=== PATIENT | male | born 1980 | race African-American/Black ===

== ENCOUNTER 2016-12-13 14:05 | Emergency (ER) | payer SELFPAY ==
[~2016-12-13] VITALS: Ht 175.3 cm; Wt 106.5 kg
[~2016-12-13 14:05] MED LIST: HYDR50TA94 PO; PRED20 PO; RANI300T PO; Z.0.NO CURRENT MEDS
[2016-12-13 14:06] VITALS: BP 133/78; PULSE 80; RESP 17; TEMP 98.3; O2SAT 98
--- NOTE | 2016-12-13 14:30 | PD ---
HPI . left thumb laceration Chief Complaint: Injury Time Seen by Provider: 14:30 Travel History International Travel<30 days: No Contact w/Intl Traveler<30days: No Traveled to known affect area: No History of Present Illness HPI 36-year-old male with no significant past medical history here with complaints of left thumb laceration. Patient was cutting some cooked chicken breast when he accidentally sliced through the distal tip of his left thumb. He is here for repair. He does report pain at the left distal thumb. He also has some pain at the metacarpal phalangeal joint of the thumb. He is right handed dominant. He does not recall the last date of his tetanus. [facility] Social History Alcohol Use: No Tobacco Use: Yes (1 PPD) Substance Use: No Allergies-Medications (Allergen,Severity, Reaction): Coded Allergies: No Known Allergies (Verified , 12/13/16) Reported Meds & Prescriptions Reported Meds & Active Scripts Active No Active Prescriptions or Reported Medications Review of Systems General / Constitutional: No: Fever Eyes: No: Visual changes HENT: No: Headaches Cardiovascular: No: Chest Pain or Discomfort Respiratory: No: Shortness of Breath Gastrointestinal: No: Abdominal Pain Genitourinary: No: Dysuria Musculoskeletal: No: Pain Skin: Positive Other (left thumb laceration ), No Rash Neurologic: No: Weakness Psychiatric: No: Depression Endocrine: No: Polydipsia Hematologic/Lymphatic: No: Easy Bruising Physical Exam Narrative GENERAL: AAO x 3, no acute distress, Well-nourished, well-developed patient. SKIN: Warm and dry. No visible rashes or bruising. Left thumb distal tip with a 1.4 cm laceration extended from the mid nailbed all the way around to the volar surface. no bone or vessel seen. No nerve seen. Extends in fat pad. HEAD: Normocephalic and atraumatic. EYES: No scleral icterus. No injection or drainage. ENT: No nasal drainage noted. Airway patent. NECK: Supple, trachea midline. No JVD. CARDIOVASCULAR: Regular rate and rhythm without murmurs, gallops, or rubs. RESPIRATORY: Breath sounds equal bilaterally. No accessory muscle use. No rhonchi or rales. GASTROINTESTINAL: Visual inspection is normal EXTREMITIES: No cyanosis or edema. Left thumb laceration. All digits of the bilateral hands move normally. Sensation is intact. BACK: Nontender without obvious deformity. No CVA tenderness. PSYCH: AAO x 3, normal affect. Data Data Last Documented VS Vital Signs Date Time Temp Pulse Resp B/P Pulse Ox O2 Delivery O2 Flow Rate FiO2 12/13/16 14:06 98.3 80 17 133/78 98 Orders Tetanus/Diphtheria Tox Adult (Tetanus/Di (12/13/16 14:45) Lidocaine 1% Inj (50 Ml) (Xylocaine 1% I (12/13/16 14:45) Finger ([id number]) (12/13/16 14:34) MDM Medical Decision Making Medical Screen Exam Complete: Yes Emergency Medical Condition: Yes Medical Record Reviewed: Yes Differential Diagnosis left thumb laceration, abrasion, less likely amputation, less likely fracture Narrative Course 36-year-old male with no significant past medical history here with complaints of left thumb laceration. Patient was cutting some cooked chicken breast when he accidentally sliced through the distal tip of his left thumb. He is here for repair. He does report pain at the left distal thumb. He also has some pain at the metacarpal phalangeal joint of the thumb. He is right handed dominant. He does not recall the last date of his tetanus. Patient seen and examined. He does have a laceration to the left distal thumb that needs repair. Patient gave verbal consent to repair. X-ray ordered to look for any signs of fractures. X-ray negative. Laceration was repaired with 6 total simple interrupted sutures. 3 in the nailbed were chromic gut and 3 along the thumb were Ethilon. Tetanus was administered without incident. Clean sterile dressing was applied. Splint was given for protection. Advised to keep area safe from injury. Tramadol for pain. Wound care discussed. Advised to return in 5-7 days for repair. Patient verbalized understanding of instructions, questions were answered, and thanked me for their care. I advised them if their condition worsens, please return to the nearest emergency room for further care. Procedures Procedure Narrative LACERATION LOCATION: Left distal thumb LENGTH: 1.4 cm NUMBER OF STITCHES/CUAUHTEMOC: 6 total ( 3 chromic gut/3 ethilon) REPAIR: The area of the laceration was prepped with Betadine and sterilely draped. The laceration was infiltrated with 1% lidocaine digital block. The wound was copiously irrigated and explored without evidence of foreign body, tendon injury or neurovascular injury. The wound was closed using chromic gut and Ethilon. This was a single layer repair. A sterile dressing was applied. The patient was advised to keep the dressing clean and dry. Patient tolerated the procedure well. Diagnosis Primary Impression: Laceration of left thumb Qualified Code: S61.012A - Laceration of left thumb, initial encounter Patient Instructions: Acute Wound Care (ED), Finger Laceration (ED), General Instructions Additional Instructions: Keep area clean and dry. Use gauze as we discussed and change 1-2 times a day. Watch for signs of infection: fever, redness, swelling, warmth, pus or drainage , red streaks around the cut, and increased pain from the area. If any of these signs of infection develop, please come to the emergency department immediately. If you received a tetanus shot, you may experience tenderness at the injection site. This is normal. Return to the emergency department in 5-7 days to have the sutures removed (3) Scripts Tramadol 50 Mg Tab50 Mg PO Q8H PRN (PAIN) #8 TAB Ref 0 Prov:Tommy Beauchamp MD 12/13/16 Disposition: 01 DISCHARGE HOME Condition: Stable Melody Rosario Dec 13, 2016 14:30 Condition: Stable Melody Rosario Dec 13, 2016 14:30
[2016-12-13] MEDS ORDERED: LIDOCAINE HCL 1% 50 ML VIAL INFIL ONE (14:45)
[2016-12-13] MEDS ORDERED: TETANUS/DIPHTHERIA TOXOID ADULT 0.5 ML VIAL IM ONE (14:45)
--- NOTE | 2016-12-13 15:10 | RADRPT ---
EXAM DATE/TIME: 12/13/2016 15:05 [facility] COMPARISON: No previous studies available for comparison. INDICATIONS : Pain from laceration with knife while cooking. MEDICAL HISTORY : None. SURGICAL HISTORY : None. ENCOUNTER: Initial ACUITY: 1 day PAIN SCORE: 8/10 LOCATION: Left first digit. FINDINGS: No definite fractures, or dislocations are identified. No definite lytic or sclerotic lesion is seen . Soft tissue swelling is identified with slight soft tissue laceration of the first distal phalanx. There is no evidence for a radiopaque foreign body for technique. CONCLUSION: Soft tissue swelling/laceration and no definite fracture for technique. Jeny Blandon MD on December 13, 2016 at 15:07 Board Certified Radiologist. This report was verified electronically.
[2016-12-13] MEDS ORDERED: TRAM50TA PO (15:47)
== END 2016-12-13 15:57 | disposition home or self-care (01) ==
LOC: NEPK 14:05
DX: S61.012A Laceration without foreign body of left thumb without damage to nail, initial encounter (principal); W26.0XXA Contact with knife, initial encounter; Y93.G1 Activity, food preparation and clean up; Z23 Encounter for immunization
CPT/HCPCS: 12001; 73140; 90471; 90714

== ENCOUNTER 2017-06-22 22:12 | Emergency (ER) | payer SELFPAY ==
[~2017-06-22] VITALS: Ht 175.3 cm; Wt 98.0 kg
[~2017-06-22 22:12] MED LIST changes: -HYDR50TA94 PO; -PRED20 PO; -RANI300T PO; +TRAM50TA PO; -Z.0.NO CURRENT MEDS
[2017-06-22 22:17] VITALS: BP 152/99; PULSE 104; RESP 18; TEMP 98.1; O2SAT 98
[2017-06-22] MEDS ORDERED: SODIUM CHLOR 0.9% 1000 ML INJ 1,000 ML IV SCH (22:44)
[2017-06-22] MEDS ORDERED: ONDANSETRON HCL 4 MG/2 ML VIAL IVP ONE (22:45)
[2017-06-22] MEDS ORDERED: LIDOCAINE VISCOUS 2% SOLN 15 ML UDC PO ONE (22:45)
[2017-06-22] MEDS ORDERED: SODIUM CHLORIDE 0.9% FLUSH 10 ML FLUSH IV FLUSH PRN (22:45)
[2017-06-22] MEDS ORDERED: ALUMINUM/MAGNESIUM/SIMETH 30 ML CUP PO ONE (22:45)
[2017-06-22] MEDS ORDERED: MORPHINE SULFATE 4 MG/ML INJ IV PUSH ONE (22:45)
--- NOTE | 2017-06-22 22:46 | PD ---
HPI Chief Complaint: Flank/Kidney Pain Time Seen by Provider: 22:39 Travel History International Travel<30 days: No Contact w/Intl Traveler<30days: No Traveled to known affect area: No History of Present Illness HPI 37-year-old male with reported history of kidney stones here for evaluation of bilateral flank pain. The patient reports that the pain has been going on for last 2 days, described as cramping, radiates to his bilateral upper and lower abdomen, intermittently worse at times. No modifying factors. Pain is associated with nausea and vomiting. He has also noted hematuria. PFSH Past Medical History Diabetes: No Patient Takes Glucophage: No Diminished Hearing: No Kidney Stones: Yes Immunizations Current: Yes Tetanus Vaccination: < 5 Years Influenza Vaccination: Yes Past Surgical History Other Surgery: Yes (KIDNEY STONES) Social History Alcohol Use: Yes (OCCASIONAL) Tobacco Use: Yes Substance Use: No Allergies-Medications (Allergen,Severity, Reaction): Coded Allergies: No Known Allergies (Verified Adverse Reaction, Unknown, 06/22/17) Reported Meds & Prescriptions Reported Meds & Active Scripts Active No Active Prescriptions or Reported Medications Review of Systems Except as stated in HPI: all other systems reviewed are Neg Physical Exam Narrative GENERAL: Well-developed, well-nourished, retching into an emesis bag. SKIN: Focused skin assessment warm/dry. No rash. HEAD: Atraumatic. Normocephalic. EYES: Pupils equal and round. No scleral icterus. No injection or drainage. ENT: Mucous membranes pink and moist. NECK: Trachea midline. No JVD. CARDIOVASCULAR: Regular rate and rhythm. No murmur appreciated. RESPIRATORY: No accessory muscle use. Clear to auscultation. Breath sounds equal bilaterally. GASTROINTESTINAL: Abdomen soft, non-tender, nondistended. MUSCULOSKELETAL: No obvious deformities. No clubbing. No cyanosis. No edema. Moderate bilateral CVA tenderness. NEUROLOGICAL: Awake and alert. No obvious cranial nerve deficits. Motor grossly within normal limits. Normal speech. PSYCHIATRIC: Appropriate mood and affect; insight and judgment normal. Data Data Last Documented VS Vital Signs Date Time Temp Pulse Resp B/P (MAP) Pulse Ox O2 Delivery O2 Flow Rate FiO2 06/22/17 22:56 98.4 90 12 135/84 (101) 98 Orders Orders Complete Blood Count With Diff (06/22/17 22:44) Comprehensive Metabolic Panel (06/22/17 22:44) Lipase (06/22/17 22:44) Prothrombin Time / Inr (Pt) (06/22/17 22:44) Act Partial Throm Time (Ptt) (06/22/17 22:44) Urinalysis - C+S If Indicated (06/22/17 22:44) Ct Abd/Pel W/O Iv Contrast (06/22/17 22:44) Iv Access Insert/Monitor (06/22/17 22:44) Ecg Monitoring (06/22/17:44) Oximetry (06/22/17:44) Morphine Inj (Morphine Inj) (06/22/17 22:45) Ondansetron Inj (Zofran Inj) (06/22/17 22:45) Sodium Chlor 0.9% 1000 Ml Inj (Ns 1000 M (06/22/17 22:44) Sodium Chloride 0.9% Flush (Ns Flush) (06/22/17 22:45) Al-Mag Hy-Si 40-40-4 Mg/Ml Liq (Mag-Al P (06/22/17 22:45) Lidocaine 2% Viscous (Xylocaine 2% Visco (06/22/17 22:45) Sodium Chlor 0.9% 1000 Ml Inj (Ns 1000 M (06/23/17 00:15) Creatine Kinase (Cpk) (06/23/17 00:18) CKMB (06/22/17 23:15) CKMB% (06/22/17 23:15) Basic Metabolic Panel (Bmp) (06/23/17 01:02) Complete Blood Count With Diff (06/23/17 01:02) Sodium Chloride 0.9% Flush (Ns Flush) (06/23/17 01:15) Creatine Kinase (Cpk) (06/23/17 01:02) Drug Screen, Random Urine (06/23/17 01:02) CKMB (06/23/17 01:30) CKMB% (06/23/17 01:30) Potassium Chloride (Kcl) (06/23/17 09:00) Labs Laboratory Tests Test 06/22/17 23:05 06/22/17 23:15 06/23/17 01:30 Urine Color DARK-YELLOW Urine Turbidity HAZY Urine pH 6.0 Urine Specific [place] 1.033 Urine Protein 300 mg/dL Urine Glucose (UA) NEG mg/dL Urine Ketones TRACE mg/dL Urine Occult Blood SMALL Urine Nitrite NEG Urine Bilirubin NEG Urine Urobilinogen 4.0 MG/DL Urine Leukocyte Esterase NEG Urine RBC 8 /hpf Urine WBC 4 /hpf Urine Squamous Epithelial Cells <1 /hpf Urine Bacteria RARE /hpf Urine Hyaline Casts 110 /lpf Urine Mucus MOD /lpf Microscopic Urinalysis Comment CULT NOT INDICATED Urine Opiates Screen NEG Urine Barbiturates Screen NEG Urine Amphetamines Screen NEG Urine Benzodiazepines Screen NEG Urine Cocaine Screen NEG Urine Cannabinoids Screen NEG White Blood Count 10.6 TH/MM3 9.0 TH/MM3 Red Blood Count 6.33 MIL/MM3 5.43 MIL/MM3 Hemoglobin 19.4 GM/DL 16.6 GM/DL Hematocrit 54.9 % 47.2 % Mean Corpuscular Volume 86.7 FL 86.9 FL Mean Corpuscular Hemoglobin 30.7 PG 30.5 PG Mean Corpuscular Hemoglobin Concent 35.4 % 35.1 % Red Cell Distribution Width 14.3 % 14.4 % Platelet Count 220 TH/MM3 202 TH/MM3 Mean Platelet Volume 8.2 FL 8.0 FL Neutrophils (%) (Auto) 72.0 % 66.5 % Lymphocytes (%) (Auto) 17.9 % 22.0 % Monocytes (%) (Auto) 9.1 % 10.5 % Eosinophils (%) (Auto) 0.1 % 0.1 % Basophils (%) (Auto) 0.9 % 0.9 % Neutrophils # (Auto) 7.7 TH/MM3 6.0 TH/MM3 Lymphocytes # (Auto) 1.9 TH/MM3 2.0 TH/MM3 Monocytes # (Auto) 1.0 TH/MM3 0.9 TH/MM3 Eosinophils # (Auto) 0.0 TH/MM3 0.0 TH/MM3 Basophils # (Auto) 0.1 TH/MM3 0.1 TH/MM3 CBC Comment DIFF FINAL DIFF FINAL Differential Comment Prothrombin Time 11.2 SEC Prothromb Time International Ratio 1.0 RATIO Activated Partial Thromboplast Time 28.3 SEC Blood Urea Nitrogen 26 MG/DL 22 MG/DL Creatinine 1.60 MG/DL 1.20 MG/DL Random Glucose 112 MG/DL 88 MG/DL Total Protein 10.4 GM/DL Albumin 4.6 GM/DL Calcium Level 9.9 MG/DL 8.6 MG/DL Alkaline Phosphatase 168 U/L Aspartate Amino Transf (AST/SGOT) 46 U/L Alanine Aminotransferase (ALT/SGPT) 48 U/L Total Bilirubin 1.1 MG/DL Sodium Level 131 MEQ/L 134 MEQ/L Potassium Level 3.2 MEQ/L 3.1 MEQ/L Chloride Level 91 MEQ/L 96 MEQ/L Carbon Dioxide Level 27.5 MEQ/L 28.4 MEQ/L Anion Gap 13 MEQ/L 10 MEQ/L Estimat Glomerular Filtration Rate 59 ML/MIN 82 ML/MIN Total Creatine Kinase 1072 U/L 846 U/L Creatine Kinase MB 5.0 NG/ML Creatine Kinase MB % 0.5 % Lipase 73 U/L MDM Medical Decision Making Medical Screen Exam Complete: Yes Emergency Medical Condition: Yes Differential Diagnosis Nephrolithiasis, ureterolithiasis, UTI, pyelonephritis, gastritis, peptic ulcer disease, hepatobiliary disease Narrative Course Initial vital signs show heart rate 104, blood pressure 152/99, pulse ox 98% on room air, oral temp of 98.1F. Repeat vital signs show heart rate 90, blood pressure 135/84, pulse ox 98% on room air, oral temp of 98.4F. CBC: WBC 10.6, hemoglobin 19.4, hematocrit 54.9, platelets 220. CMP shows sodium 131, potassium 3.2, chloride 91, V1 26, creatinine 1.6, GFR 59 which is slightly worse than labs that we have on file from 7 years ago. Total CK is 1072. UA shows hazy/dark yellow urine, 3 and a protein, trace ketones, small occult blood, 4 urobilinogen, 8 rbc's, rare bacteria, moderate mucus, not suggestive of UTI. CT abdomen pelvis: No evidence of acute abdominal or pelvic process. No masses are identified. No renal stones are identified. Patient was given pain medication, and on reassessment he is feeling improved. He was made aware of all findings and denies illicit drug use. Patient was given 2 L normal saline IV. His labs will be repeated. If there is an improvement in his hemoconcentration, creatinine, and total CK, he will be discharged home. With further workup as an outpatient. My PA Taj Ward will follow-up with these results and formulate a disposition. Diagnosis Primary Impression: Flank pain Additional Impressions: Dehydration Hypokalemia Scripts No Active Prescriptions or Reported Meds Daniel Ribera MD Jun 22, 2017 22:46
[2017-06-22 22:56] VITALS: BP 135/84; PULSE 90; RESP 12; TEMP 98.4; O2SAT 98
--- NOTE | 2017-06-22 23:25 | RADRPT ---
EXAM DATE/TIME: 06/22/2017 23:04 [facility] COMPARISON: No previous studies available for comparison. INDICATIONS : Bilateral flank pain. ORAL CONTRAST: No oral contrast ingested. RADIATION DOSE: 13.08 CTDIvol (mGy) MEDICAL HISTORY : Renal calculi. SURGICAL HISTORY : Surgery for renal calculi removal. ENCOUNTER: Initial ACUITY: 1 day PAIN SCALE: 6/10 LOCATION: Bilateral flank TECHNIQUE: Volumetric scanning of the abdomen and pelvis was performed. Using automated exposure control and ad justment of the mA and/or kV according to patient size, radiation dose was kept as low as reasonably achievable to obtain optimal diagnostic quality images. DICOM format image data is available electro nically for review and comparison. FINDINGS: Examination of the lung bases demonstrates no abnormality. No pleural fluid is identified. No pulmona ry nodules are present. The liver and spleen are normal in size and no focal defects are identified. There is facet arthritis atThe adrenal glands are unremarkable. The kidneys are normal bilaterally wi thout evidence of mass or hydronephrosis. Examination of the pelvis demonstrates no evidence of free fluid or pelvic mass. No abnormally enlarg ed inguinal or retroperitoneal lymph nodes are present. The bladder is unremarkable. There is diverti culosis without evidence of diverticulitis. CONCLUSION: 1. No evidence of acute abdominal or pelvic process. No masses are identified. No renal stones are id entified. Gideon Arauz MD on June 22, 2017 at 23:20 Board Certified Radiologist. This report was verified electronically.
[2017-06-22 23:43] LABS: AUTOMATED NEUTROPHIL # 7.7 TH/MM3 (1.8-7.7); BASOPHIL # 0.1 TH/MM3 (0-0.2); BASOPHIL % 0.9 % (0.0-2.0); EOSINOPHIL % 0.1 % (0.0-4.0); HEMATOCRIT 54.9 % (39.0-51.0); HEMO FLAGS DIFF FINAL; LYMPH % 17.9 % (9.0-44.0); LYMPHOCYTE # 1.9 TH/MM3 (1.0-4.8); MEAN CELL VOLUME 86.7 FL (80.0-100.0); MEAN CORPUSCULAR HEMOGLOBIN 30.7 PG (27.0-34.0); MEAN CORPUSCULAR HGB CONC 35.4 % (32.0-36.0); MONO % 9.1 % (0.0-8.0); PLATELET COUNT 220 TH/MM3 (150-450); RED BLOOD COUNT 6.33 MIL/MM3 (4.50-5.90); RED CELL DISTRIBUTION WIDTH 14.3 % (11.6-17.2); WHITE BLOOD COUNT 10.6 TH/MM3 (4.0-11.0)
[2017-06-22 23:55] LABS: BACTERIA, URINE RARE /hpf; BLOOD, URINE SMALL (NEG); GLUCOSE,URINE NEG (NEG); HYALINE CAST, URINE 110 /lpf (RARE); KETONE, URINE TRACE mg/dL (NEG); MUCUS URINE MOD /lpf (OCC); NITRITE,URINE NEG (NEG); SQUAMOUS EPITHELIAL CELL URINE <1 /hpf (0-5); URINE COLOR DARK-YELLOW (YELLW/STRAW)
[2017-06-22 23:58] LABS: COMMENT (UR) CULT NOT INDICATED; CULTURE IF INDICATED CULT NOT INDICATED
[2017-06-23 00:04] LABS: ALKALINE PHOSPHATASE 168 U/L (45-117); TOTAL BILIRUBIN ADULT 1.1 MG/DL (0.2-1.0)
[2017-06-23 00:07] LABS: APTT (PATIENT) 28.3 SEC (24.3-30.1); PROTHROMBIN TIME - PATIENT 11.2 SEC (9.8-11.6)
[2017-06-23 00:14] LABS: ALT (GPT) 48 U/L (12-78); ANION GAP 13 MEQ/L (5-15); AST (GOT) 46 U/L (15-37); BICARBONATE 27.5 MEQ/L (21.0-32.0); BLOOD UREA NITROGEN 26 MG/DL (7-18); CHLORIDE 91 MEQ/L (98-107); GLOMERULAR FILTRATION RATE 59 ML/MIN (>89); POTASSIUM 3.2 MEQ/L (3.5-5.1); SODIUM (NA) 131 MEQ/L (136-145)
[2017-06-23] MEDS ORDERED: SODIUM CHLOR 0.9% 1000 ML INJ 1,000 ML IV ONE (00:15)
[2017-06-23] MEDS ORDERED: SODIUM CHLORIDE 0.9% FLUSH 10 ML FLUSH IV FLUSH PRN (01:15)
[2017-06-23 01:55] LABS: BASOPHIL # 0.1 TH/MM3 (0-0.2); BASOPHIL % 0.9 % (0.0-2.0); EOSINOPHIL % 0.1 % (0.0-4.0); HEMATOCRIT 47.2 % (39.0-51.0); HEMO FLAGS DIFF FINAL; MEAN CELL VOLUME 86.9 FL (80.0-100.0); MEAN CORPUSCULAR HEMOGLOBIN 30.5 PG (27.0-34.0); MEAN CORPUSCULAR HGB CONC 35.1 % (32.0-36.0); MONO % 10.5 % (0.0-8.0); NEUT % 66.5 % (16.0-70.0); PLATELET COUNT 202 TH/MM3 (150-450); RED BLOOD COUNT 5.43 MIL/MM3 (4.50-5.90); RED CELL DISTRIBUTION WIDTH 14.4 % (11.6-17.2)
[2017-06-23 01:59] LABS: BICARBONATE 28.4 MEQ/L (21.0-32.0); POTASSIUM 3.1 MEQ/L (3.5-5.1)
[2017-06-23] MEDS ORDERED: POTASSIUM CHLORIDE 20 MEQ CONTROLLED RELEASE TAB PO ONE (02:15)
[2017-06-23 02:19] LABS: CKMB 4.2 NG/ML (0.5-3.6)
--- NOTE | 2017-06-23 02:38 | PD ---
Physical Exam Narrative Patient was signed out to me by Dr. Ribera, pending repeat labs. Please see his documentation for full H&P. Data Data Last Documented VS Vital Signs Date Time Temp Pulse Resp B/P (MAP) Pulse Ox O2 Delivery O2 Flow Rate FiO2 06/23/17 03:06 98.4 92 16 123/78 (93) 97 Orders Orders Complete Blood Count With Diff (06/22/17 22:44) Comprehensive Metabolic Panel (06/22/17 22:44) Lipase (06/22/17 22:44) Prothrombin Time / Inr (Pt) (06/22/17 22:44) Act Partial Throm Time (Ptt) (06/22/17 22:44) Urinalysis - C+S If Indicated (06/22/17 22:44) Ct Abd/Pel W/O Iv Contrast (06/22/17 22:44) Iv Access Insert/Monitor (06/22/17 22:44) Ecg Monitoring (06/22/17 22:44) Oximetry (06/22/17 22:44) Morphine Inj (Morphine Inj) (06/22/17 22:45) Ondansetron Inj (Zofran Inj) (06/22/17 22:45) Sodium Chlor 0.9% 1000 Ml Inj (Ns 1000 M (06/22/17 22:44) Sodium Chloride 0.9% Flush (Ns Flush) (06/22/17 22:45) Al-Mag Hy-Si 40-40-4 Mg/Ml Liq (Mag-Al P (06/22/17 22:45) Lidocaine 2% Viscous (Xylocaine 2% Visco (06/22/17 22:45) Sodium Chlor 0.9% 1000 Ml Inj (Ns 1000 M (06/23/17 00:15) Creatine Kinase (Cpk) (06/23/17 00:18) CKMB (06/22/17 23:15) CKMB% (06/22/17 23:15) Basic Metabolic Panel (Bmp) (06/23/17 01:02) Complete Blood Count With Diff (06/23/17 01:02) Sodium Chloride 0.9% Flush (Ns Flush) (06/23/17 01:15) Creatine Kinase (Cpk) (06/23/17 01:02) Drug Screen, Random Urine (06/23/17 01:02) CKMB (06/23/17 01:30) CKMB% (06/23/17 01:30) Potassium Chloride (Kcl) (06/23/17 09:00) Potassium Chloride (Kcl) (06/23/17 02:15) Ed Discharge Order (06/23/17 02:40) Labs Laboratory Tests Test 06/22/17 23:05 06/22/17 23:15 06/23/17 01:30 Urine Color DARK-YELLOW Urine Turbidity HAZY Urine pH 6.0 Urine Specific [place] 1.033 Urine Protein 300 mg/dL Urine Glucose (UA) NEG mg/dL Urine Ketones TRACE mg/dL Urine Occult Blood SMALL Urine Nitrite NEG Urine Bilirubin NEG Urine Urobilinogen 4.0 MG/DL Urine Leukocyte Esterase NEG Urine RBC 8 /hpf Urine WBC 4 /hpf Urine Squamous Epithelial Cells <1 /hpf Urine Bacteria RARE /hpf Urine Hyaline Casts 110 /lpf Urine Mucus MOD /lpf Microscopic Urinalysis Comment CULT NOT INDICATED Urine Opiates Screen NEG Urine Barbiturates Screen NEG Urine Amphetamines Screen NEG Urine Benzodiazepines Screen NEG Urine Cocaine Screen NEG Urine Cannabinoids Screen NEG White Blood Count 10.6 TH/MM3 9.0 TH/MM3 Red Blood Count 6.33 MIL/MM3 5.43 MIL/MM3 Hemoglobin 19.4 GM/DL 16.6 GM/DL Hematocrit 54.9 % 47.2 % Mean Corpuscular Volume 86.7 FL 86.9 FL Mean Corpuscular Hemoglobin 30.7 PG 30.5 PG Mean Corpuscular Hemoglobin Concent 35.4 % 35.1 % Red Cell Distribution Width 14.3 % 14.4 % Platelet Count 220 TH/MM3 202 TH/MM3 Mean Platelet Volume 8.2 FL 8.0 FL Neutrophils (%) (Auto) 72.0 % 66.5 % Lymphocytes (%) (Auto) 17.9 % 22.0 % Monocytes (%) (Auto) 9.1 % 10.5 % Eosinophils (%) (Auto) 0.1 % 0.1 % Basophils (%) (Auto) 0.9 % 0.9 % Neutrophils # (Auto) 7.7 TH/MM3 6.0 TH/MM3 Lymphocytes # (Auto) 1.9 TH/MM3 2.0 TH/MM3 Monocytes # (Auto) 1.0 TH/MM3 0.9 TH/MM3 Eosinophils # (Auto) 0.0 TH/MM3 0.0 TH/MM3 Basophils # (Auto) 0.1 TH/MM3 0.1 TH/MM3 CBC Comment DIFF FINAL DIFF FINAL Differential Comment Prothrombin Time 11.2 SEC Prothromb Time International Ratio 1.0 RATIO Activated Partial Thromboplast Time 28.3 SEC Blood Urea Nitrogen 26 MG/DL 22 MG/DL Creatinine 1.60 MG/DL 1.20 MG/DL Random Glucose 112 MG/DL 88 MG/DL Total Protein 10.4 GM/DL Albumin 4.6 GM/DL Calcium Level 9.9 MG/DL 8.6 MG/DL Alkaline Phosphatase 168 U/L Aspartate Amino Transf (AST/SGOT) 46 U/L Alanine Aminotransferase (ALT/SGPT) 48 U/L Total Bilirubin 1.1 MG/DL Sodium Level 131 MEQ/L 134 MEQ/L Potassium Level 3.2 MEQ/L 3.1 MEQ/L Chloride Level 91 MEQ/L 96 MEQ/L Carbon Dioxide Level 27.5 MEQ/L 28.4 MEQ/L Anion Gap 13 MEQ/L 10 MEQ/L Estimat Glomerular Filtration Rate 59 ML/MIN 82 ML/MIN Total Creatine Kinase 1072 U/L 846 U/L Creatine Kinase MB 5.0 NG/ML 4.2 NG/ML Creatine Kinase MB % 0.5 % 0.5 % Lipase 73 U/L MDM Supervised Visit with MINDY: No Narrative Course Patient in no obvious distress upon re-evaluation. All pertinent laboratory result(s) discussed with patient. Patient potassium was replaced orally. Patient states he's been having difficulty keeping fluids down. We'll give patient prescription for Zofran. Any questions/concerns in reference to patient diagnosis/condition discussed and clarified prior to patient's discharge. Reinforced sheer importance of close follow up with patient's primary physician or primary care clinic. Instructed patient to return to ED immediately, if symptoms return/worsen. Patient showed understanding of above instructions. Further instructions and recommendations were detailed in discharge paperwork. Patient ambulated without difficulty out of ED at discharge. Diagnosis Primary Impression: Flank pain Additional Impressions: Dehydration Hypokalemia Referrals: [facility] Patient Instructions: Dehydration (ED), Flank Pain (ED), General Instructions, Hypokalemia (ED) Additional Instruction: Follow-up with your primary care physician this week for reevaluation. Take all medication as prescribed. Drink plenty of non-caffeinated nonalcoholic fluids. Return to the emergency department if symptoms get worse. Med/Other Pt SpecificInfo: Prescription(s) given Scripts Ondansetron Odt (Zofran Odt) 4 Mg Tab 4 MG SL Q6HR Y for Nausea/Vomiting, #12 TAB 0 Refills Prov: Daniel Ribera MD 06/23/17 Disposition: 01 DISCHARGE HOME Condition: Stable Jourdan Ward Jun 23, 2017 02:38
[2017-06-23] MEDS ORDERED: ZOFR4TAB3 SL (02:39)
[2017-06-23 03:06] VITALS: BP 123/78; TEMP 98.4
[2017-06-23] MEDS ORDERED: POTASSIUM CHLORIDE 20 MEQ CONTROLLED RELEASE TAB PO SCH (09:00)
== END 2017-06-23 03:49 | disposition home or self-care (01) ==
LOC: NEPD 22:12
DX: R10.9 Unspecified abdominal pain (principal); E86.0 Dehydration; E87.6 Hypokalemia; Z72.0 Tobacco use
CPT/HCPCS: 74176; 80048; 80053; 80307; 81001; 82550; 82552; 83690; 85025; 85610; 85730; 96361; 96374; 96375; 99285; J2270; J2405; J7030

== ENCOUNTER 2017-12-03 19:41 | Emergency (ER) | payer SELFPAY ==
[~2017-12-03] VITALS: Ht 175.3 cm; Wt 100.0 kg
[~2017-12-03 19:41] MED LIST changes: -TRAM50TA PO; +ZOFR4TAB3 SL
[2017-12-03 19:53] VITALS: BP 129/79; PULSE 81; RESP 18; TEMP 97.5; O2SAT 98
--- NOTE | 2017-12-03 19:56 | PD ---
HPI Chief Complaint: GI Complaint Time Seen by Provider: 19:54 (Charlotte Vernon) Time Seen by Provider: 21:35 (Luis Carmen MD) Travel History International Travel<30 days: No Contact w/Intl Traveler<30days: No Traveled to known affect area: No (Charlotte Vernon) International Travel<30 days: No Contact w/Intl Traveler<30days: No (Luis Carmen MD) History of Present Illness HPI 37-year-old male presents with patient. He believes he is dehydrated. 5 day outside and did not drink water. He states that he has been cramping everywhere. He is nauseous. He has vomited once. He denies any illicit drug use. No tobacco cigarettes. States pain is a intermittent, moderate in severity pain. He complains of a dry mouth and is requesting to drink. He has no other medical complaints at this time. (Charlotte Vernon) HPI Please refer to the mid-level note. (Luis Carmen MD) [facility] Past Medical History Medical History: Denies Significant Hx Diabetes: No Diminished Hearing: No Kidney Stones: Yes Immunizations Current: Yes (Charlotte Vernon) Past Surgical History Other Surgery: Yes (KIDNEY STONES) (Charlotte Vernon) Social History Alcohol Use: Yes (OCCASIONAL) Tobacco Use: Yes Substance Use: No (Charlotte Vernon) Allergies-Medications (Allergen,Severity, Reaction): Coded Allergies: No Known Allergies (Verified Allergy, Unknown, 06/23/17) Reported Meds & Prescriptions Reported Meds & Active Scripts Active (Luis Carmen MD) Review of Systems Except as stated in HPI: all other systems reviewed are Neg (Charlotte Vernon) Physical Exam Narrative GENERAL: Well-nourished male patient, in no acute distress SKIN: Focused skin assessment warm/diaphoretic HEAD: Atraumatic. Normocephalic. EYES: Pupils equal and round. No scleral icterus. No injection or drainage. ENT: No nasal bleeding or discharge. Mucous membranes pink and moist. NECK: Trachea midline. No JVD. CARDIOVASCULAR: Regular rate and rhythm. No murmur appreciated. RESPIRATORY: No accessory muscle use. Clear to auscultation. Breath sounds equal bilaterally. GASTROINTESTINAL: Abdomen soft, nondistended Hepatic and splenic margins not palpable. MUSCULOSKELETAL: No obvious deformities. No clubbing. No cyanosis. No edema. NEUROLOGICAL: Awake and alert. No obvious cranial nerve deficits. Motor grossly within normal limits. Normal speech. al. (Charlotte Vernon) Narrative GENERAL: 37-year-old male well-nourished well-developed SKIN: Warm and dry. HEAD: Normocephalic. EYES: No scleral icterus. No injection or drainage. NECK: Supple, trachea midline. No JVD or lymphadenopathy. CARDIOVASCULAR: Regular rate and rhythm without murmurs, gallops, or rubs. RESPIRATORY: Breath sounds equal bilaterally. No accessory muscle use. GASTROINTESTINAL: Abdomen soft, non-tender, nondistended. MUSCULOSKELETAL: No cyanosis, or edema. BACK: Nontender without obvious deformity. No CVA tenderness. (Luis Carmen MD) Data Data Last Documented VS Vital Signs Date Time Temp Pulse Resp B/P (MAP) Pulse Ox O2 Delivery O2 Flow Rate FiO2 12/03/17 22:46 12/03/17 21:36 98.9 86 20 99 Room Air (Luis Carmen MD) Orders Orders Iv Access Insert/Monitor (12/03/17 19:55) Complete Blood Count With Diff (12/03/17 19:55) Basic Metabolic Panel (Bmp) (12/03/17 19:55) Creatine Kinase (Cpk) (12/03/17 19:55) Sodium Chlor 0.9% 1000 Ml Inj (Ns 1000 M (12/03/17 20:00) Sodium Chlor 0.9% 1000 Ml Inj (Ns 1000 M (12/03/17 20:30) CKMB (12/03/17 20:05) CKMB% (12/03/17 20:05) Sodium Chlor 0.9% 1000 Ml Inj (Ns 1000 M (12/03/17 22:00) Ondansetron Inj (Zofran Inj) (12/03/17 22:00) Ed Discharge Order (12/03/17 22:09) (Luis Carmen MD) Labs Laboratory Tests Test 12/03/17 20:05 White Blood Count 11.8 TH/MM3 Red Blood Count 5.62 MIL/MM3 Hemoglobin 17.4 GM/DL Hematocrit 50.5 % Mean Corpuscular Volume 89.9 FL Mean Corpuscular Hemoglobin 31.1 PG Mean Corpuscular Hemoglobin Concent 34.6 % Red Cell Distribution Width 15.4 % Platelet Count 230 TH/MM3 Mean Platelet Volume 7.9 FL Neutrophils (%) (Auto) 78.7 % Lymphocytes (%) (Auto) 11.4 % Monocytes (%) (Auto) 9.1 % Eosinophils (%) (Auto) 0.3 % Basophils (%) (Auto) 0.5 % Neutrophils # (Auto) 9.3 TH/MM3 Lymphocytes # (Auto) 1.3 TH/MM3 Monocytes # (Auto) 1.1 TH/MM3 Eosinophils # (Auto) 0.0 TH/MM3 Basophils # (Auto) 0.1 TH/MM3 CBC Comment DIFF FINAL Differential Comment Blood Urea Nitrogen 9 MG/DL Creatinine 1.50 MG/DL Random Glucose 94 MG/DL Calcium Level 9.1 MG/DL Sodium Level 141 MEQ/L Potassium Level 4.4 MEQ/L Chloride Level 108 MEQ/L Carbon Dioxide Level 22.2 MEQ/L Anion Gap 11 MEQ/L Estimat Glomerular Filtration Rate 63 ML/MIN Total Creatine Kinase 363 U/L Creatine Kinase MB 1.4 NG/ML Creatine Kinase MB % 0.4 % (Luis Carmen MD) [facility] Medical Decision Making Medical Screen Exam Complete: Yes Emergency Medical Condition: Yes Medical Record Reviewed: Yes Differential Diagnosis Dehydration versus indigestion versus heat stroke versus electrolyte abnormality versus rhabdo Narrative Course 37-year-old male presents emergency department for evaluation. Patient appears without distress. He is diaphoretic. He has vomited once here in the emergency department. He reports cramping of the extremities. Workup is initiated in the ambulance hallway. Once a bed becomes available, patient will be transferred and care assumed by that provider. (Charlotte Vernon) Medical Screen Exam Complete: Yes Differential Diagnosis Constipation, Gastritis, Acute Cholecystitis, Biliary Colic, Pancreatitis, CUELLO , Hepatitis, Bowel Obstruction, Cystitis, Mesenteric Ischemia, AAA, Appendicitis , Renal Stone/Hydronephrosis, GERD, perforated viscous Narrative Course The patient is resting comfortably and feels better, is alert and in no distress. The patients results and examination findings were discussed. The repeat examination is unremarkable and benign. The history, exam, diagnostic testing, and current condition do not suggest any significant pathology to warrant further testing, continued ED treatment, admission, or surgical evaluation at this point. The vital signs have been stable. The patient does not have uncontrollable pain, intractable vomiting, or other significant symptoms. The patient's condition is stable and appropriate for discharge. The patient will pursue further outpatient evaluation with a primary care physician or other designated or consulting physician as indicated in the discharge instructions. The patient expressed understanding and was agreeable with this plan. (Luis Carmen MD) Diagnosis Primary Impression: Dehydration Additional Impressions: Vomiting Qualified Codes: R11.10 - Vomiting, unspecified Tremor Med/Other Pt SpecificInfo: No Change to Meds (Luis Carmen MD) Disposition: 01 DISCHARGE HOME Condition: Stable SauloCharlotte LAURA Dec 03, 2017 19:56 Luis Carmen MD Dec 03, 2017 22:10
[2017-12-03] MEDS ORDERED: SODIUM CHLOR 0.9% 1000 ML INJ 1,000 ML IV ONE ×3 (20:00→22:00)
[2017-12-03 20:37] LABS: AUTOMATED NEUTROPHIL # 9.3 TH/MM3 (1.8-7.7); BASOPHIL # 0.1 TH/MM3 (0-0.2); BASOPHIL % 0.5 % (0.0-2.0); EOSINOPHIL % 0.3 % (0.0-4.0); HEMATOCRIT 50.5 % (39.0-51.0); HEMOGLOBIN 17.4 GM/DL (13.0-17.0); LYMPH % 11.4 % (9.0-44.0); LYMPHOCYTE # 1.3 TH/MM3 (1.0-4.8); MEAN CELL VOLUME 89.9 FL (80.0-100.0); MEAN CORPUSCULAR HEMOGLOBIN 31.1 PG (27.0-34.0); MEAN CORPUSCULAR HGB CONC 34.6 % (32.0-36.0); MEAN PLATELET VOLUME 7.9 FL (7.0-11.0); MONO % 9.1 % (0.0-8.0); MONOCYTE # 1.1 TH/MM3 (0-0.9); NEUT % 78.7 % (16.0-70.0); PLATELET COUNT 230 TH/MM3 (150-450); RED BLOOD COUNT 5.62 MIL/MM3 (4.50-5.90); RED CELL DISTRIBUTION WIDTH 15.4 % (11.6-17.2); WHITE BLOOD COUNT 11.8 TH/MM3 (4.0-11.0)
[2017-12-03 21:06] LABS: BICARBONATE 22.2 MEQ/L (21.0-32.0); CALCIUM 9.1 MG/DL (8.5-10.1); CREATININE 1.5 MG/DL (0.60-1.30)
[2017-12-03 21:36] VITALS: BP 140/101; PULSE 86; RESP 20; TEMP 98.9; O2SAT 99
[2017-12-03] MEDS ORDERED: ONDANSETRON HCL 4 MG/2 ML VIAL IV PUSH ONE (22:00)
== END 2017-12-03 22:50 | disposition home or self-care (01) ==
LOC: NEPD 19:41
DX: E86.0 Dehydration (principal); R11.10 Vomiting, unspecified; R25.1 Tremor, unspecified; Z72.0 Tobacco use
CPT/HCPCS: 80048; 82550; 82552; 85025; 96361; 96374; 99284; J2405; J7030